=== PATIENT | male | born 1990 | race Caucasian/White ===

== ENCOUNTER 2021-05-22 10:20 | Outpatient (CLI) | payer OTHER | END 2021-05-22 10:21 | disposition critical access hospital (66) | LOC: EMS 10:20 | DX: S39.92XA Unspecified injury of lower back, initial encounter (principal); S39.93XA Unspecified injury of pelvis, initial encounter; W17.89XA Other fall from one level to another, initial encounter; Y93.H3 Activity, building and construction; Y92.008 Other place in unspecified non-institutional (private) residence as the place of occurrence of the external cause; Y99.0 Civilian activity done for income or pay | CPT/HCPCS: A0425; A0427 ==

== ENCOUNTER 2021-05-22 10:31 | Emergency (ER) | payer OTHER ==
--- NOTE | 2021-05-22 10:55 | ED Physician Documentation ---
History of Present Illness - Stated complaint Stated Complaint: 12 FT FALL - Chief complaint Chief Complaint: Trauma Ch/Bk - History obtained from History obtained from: Patient, EMS - History of Present Illness Timing: Today Pain level max: 8 Pain level now: 5 - Additonal information Additional information: Patient is a 30-year-old male who states he was at work today when he stepped backwards on a piece of plywood that flipped up and he fell about 12 feet down onto the ground below injuring his right and left hip. Also complains of low back pain. No ankle pain, no foot pain, no knee pain, no chest pain, no neck pain, no head pain. No head injury. No loss of consciousness. Worse with movement, better with rest. Given fentanyl with EMS. Does not take any medications at home other than Zyrtec. No numbness or tingling. No loss of bowel or bladder control. Also complains of mild diffuse abdominal pain. Review of Systems Ten Systems: 10 systems reviewed and negative Constitutional: denies: Fever, Chills Ears: denies: Ear pain Nose: denies: Rhinorrhea / runny nose, Congestion Respiratory: denies: Cough GI: denies: Nausea, Vomiting, Diarrhea Skin: denies: Rash Musculoskeletal: denies: Neck pain, Back pain Neurologic: denies: Headache PD PAST MEDICAL HISTORY - Past Medical History Past Medical History: No - Past Surgical History Past Surgical History: No - Present Medications Home Medications: Ambulatory Orders Medication Instructions Recorded Confirmed Cetirizine [ZyrTEC] 1 tab PO DAILY PRN 05/22/21 05/22/21 - Allergies Allergies/Adverse Reactions: Allergies Allergy/AdvReac Type Severity Reaction Status Date / Time No Known Drug Allergies Allergy Verified 05/22/21 10:42 - Living Situation Living Situation: reports: With family Living Arrangement: reports: At home - Social History Does the pt have substance abuse?: No - Family History Family history: reports: Non contributory PD ED PE NORMAL - Vitals Vital signs reviewed: Yes - General General: Alert and oriented X 3, No acute distress, Well developed/nourished - HEENT HEENT: Atraumatic, PERRL, EOMI, Ears normal, Moist mucous membranes - Neck Neck: Supple, no meningeal sign, No bony TTP, Other (Full range of motion without pain) - Cardiac Cardiac: RRR, No murmur, Strong equal pulses - Respiratory Respiratory: No respiratory distress, Clear bilaterally - Abdomen Abdomen: Normal bowel sounds, Soft, Non distended, Other (Mild tenderness to palpation. No peritoneal signs) - Back Back: Other (No tenderness over the thoracic spine, mild tenderness to palpation, midline lower lumbar. No step-off or deformity.) - Derm Derm: Warm and dry - Extremities Extremities: No deformity, No tenderness to palpate, Other (Pelvis is stable. There is pain with range of motion of both hips. Otherwise normal examination of the bilateral upper and lower extremities. Neurovascular intact) - Neuro Neuro: Alert and oriented X 3, enrollment services dean 2-12 intact, No motor deficit, No sensory deficit, Normal speech Eye Opening: Spontaneous Motor: Obeys Commands Verbal: Oriented GCS Score: 15 - Psych Psych: Normal mood, Normal affect Results - Vitals Vitals: Vital Signs - 24 hr 05/22/21 05/22/21 05/22/21 10:31 11:16 11:34 Temperature 36.6 C Heart Rate 59 L 65 Respiratory 16 16 12 Rate Blood Pressure 148/82 H 134/82 H 125/79 O2 Saturation 98 99 98 Oxygen O2 Source Room air - Labs Labs: Laboratory Tests 05/22/21 05/22/21 05/22/21 10:49 10:49 10:49 WBC 6.5 RBC 4.77 Hgb 15.1 Hct 43.9 MCV 92.0 MCH 31.7 H MCHC 34.4 RDW 11.6 L Plt Count 192 MPV 12.4 H Neut # (Auto) 4.4 Lymph # (Auto) 1.5 [place] # (Auto) 0.5 Eos # (Auto) 0.1 Baso # (Auto) 0.0 Absolute Nucleated RBC 0.00 Nucleated RBC % 0.0 PT 13.5 H INR 1.2 Sodium 139 Potassium 4.0 Chloride 102 Carbon Dioxide 27 Anion Gap 10.0 BUN 20 Creatinine 1.0 Estimated GFR (MDRD) 88 L Glucose 146 H Calcium 9.4 Total Bilirubin 0.7 AST 23 ALT 19 Alkaline Phosphatase 63 Total Protein 7.5 Albumin 4.5 Globulin 3.0 Albumin/Globulin Ratio 1.5 Lipase 22 Nasal Adenovirus (PCR) Nasal B. parapertussis DNA (PCR) Nasal Coronavir 229E PCR Nasal Coronavir HKU1 PCR Nasal Coronavir NL63 PCR Nasal Coronavir OC43 PCR Nasal Enterovir/Rhinovir PCR Nasal Influenza B PCR Nasal Influenza A PCR Nasal Parainfluen 1 PCR Nasal Parainfluen 2 PCR Nasal Parainfluen 3 PCR Nasal Parainfluen 4 PCR Nasal RSV (PCR) Nasal B.pertussis DNA PCR Nasal C.pneumoniae (PCR) Chandra Human Metapneumo PCR Nasal M.pneumoniae (PCR) Nasal SARS-CoV-2 (PCR) 05/22/21 11:36 WBC RBC Hgb Hct MCV MCH MCHC RDW Plt Count MPV Neut # (Auto) Lymph # (Auto) [place] # (Auto) Eos # (Auto) Baso # (Auto) Absolute Nucleated RBC Nucleated RBC % PT INR Sodium Potassium Chloride Carbon Dioxide Anion Gap BUN Creatinine Estimated GFR (MDRD) Glucose Calcium Total Bilirubin AST ALT Alkaline Phosphatase Total Protein Albumin Globulin Albumin/Globulin Ratio Lipase Nasal Adenovirus (PCR) NOT DETECTED Nasal B. parapertussis DNA (PCR) NOT DETECTED Nasal Coronavir 229E PCR NOT DETECTED Nasal Coronavir HKU1 PCR NOT DETECTED Nasal Coronavir NL63 PCR NOT DETECTED Nasal Coronavir OC43 PCR NOT DETECTED Nasal Enterovir/Rhinovir PCR NOT DETECTED Nasal Influenza B PCR NOT DETECTED Nasal Influenza A PCR NOT DETECTED Nasal Parainfluen 1 PCR NOT DETECTED Nasal Parainfluen 2 PCR NOT DETECTED Nasal Parainfluen 3 PCR NOT DETECTED Nasal Parainfluen 4 PCR NOT DETECTED Nasal RSV (PCR) NOT DETECTED Nasal B.pertussis DNA PCR NOT DETECTED Nasal C.pneumoniae (PCR) NOT DETECTED Chandra Human Metapneumo PCR NOT DETECTED Nasal M.pneumoniae (PCR) NOT DETECTED Nasal SARS-CoV-2 (PCR) NOT DETECTED - Rads (name of study) CT head Radiology: Final report received, EMP read contemporaneously, See rad report (no acute abnormality) Ct c-spine Radiology: Final report received, EMP read contemporaneously, See rad report (no acute abnormality) Ct T spine Radiology: Final report received, EMP read contemporaneously, See rad report (no acute abnormality) CT L spine Radiology: Final report received, EMP read contemporaneously, See rad report CT abd/pelvis Radiology: Final report received, EMP read contemporaneously, See rad report PD MEDICAL DECISION MAKING - ED course Complexity details: reviewed results, re-evaluated patient, considered differ ential, d/w patient, d/w media consultant ED course: Patient with unstable L2 burst fracture. neurologically intact. Will need transfer to neurosurgery. Dr. Guzman (neurosurgery) and Dr. Ramos (emergnecy department) graciously accept in transfer. No other acute injuries. Neurologically intact at the time of transfer. Patient transferred via [facility] IMPRESSION: Acute burst-type fracture of the L2 vertebra with retropulsion of osseous fragments resulting in moderate narrowing of the spinal canal. The fracture also involves the posterior elements of the L2 vertebra. Lumbar spine MRI could be performed to evaluate for injury to the spinal cord and soft tissue structures. IMPRESSION: 1. Acute burst-type fracture of the L2 vertebra with retropulsion of bony fragments resulting in narrowing of the spinal canal, and involvement of the posterior elements. Please see the report from the separate CT of the lumbar spine performed at same time for further details. 2. No additional fracture identified. No acute solid organ injury. Departure - Departure Disposition: 02 Transfer Acute Care Hosp Clinical Impression: L2 vertebral fracture Qualifiers: Encounter type: initial encounter Fracture type: closed Fracture morphology: burst- unstable Qualified Code(s): S32.022A - Unstable burst fracture of second lumbar vertebra, initial encounter for closed fracture Condition: Stable Discharge Date/Time: 05/22/21 12:47
[2021-05-22] MEDS ORDERED: IOPAMIDOL-300 100 ML VIAL ONE (10:56)
[2021-05-22] MEDS ORDERED: HYDROmorphone 1 MG/ML CARPUJECT IVP STA ×3 (11:22→12:41)
[2021-05-22] MEDS ORDERED: ONDANSETRON 4 MG/2 ML VIAL IVP STA (11:22)
[2021-05-22 11:31] LABS: BASOPHILS % (AUTO) 0.5 %; EOSINOPHILS # (AUTO) 0.1 10^3/uL (0.0-0.7); EOSINOPHILS % (AUTO) 1.7 %; HCT - HEMATOCRIT 43.9 % (42.0-52.0); HGB - HEMOGLOBIN 15.1 g/dL (14.0-18.0); LYMPHOCYTES # (AUTO) 1.5 10^3/uL (1.5-3.5); LYMPHOCYTES % (AUTO) 22.8 %; MEAN CORPUSCULAR HEMOGLOBIN 31.7 pg (27.0-31.0); MEAN CORPUSCULAR HGB CONC 34.4 g/dL (32.0-36.0); MEAN PLATELET VOLUME 12.4 fL (7.4-11.4); MONOCYTES # (AUTO) 0.5 10^3/uL (0.0-1.0); MONOCYTES % (AUTO) 7.1 %; NEUTROPHILS # (AUTO) 4.4 10^3/uL (1.5-6.6); NEUTROPHILS % (AUTO) 67.3 %; PLT - PLATELET COUNT 192 10^3/uL (130-450); RED BLOOD COUNT 4.77 10^6/uL (4.70-6.10); RED CELL DISTRIBUTION WIDTH 11.6 % (12.0-15.0); WHITE BLOOD COUNT 6.5 x10^3/uL (4.8-10.8)
[2021-05-22 11:37] LABS: INR 1.2 (0.8-1.2); PT - PROTHROMBIN TIME 13.5 secs (9.9-12.6)
[2021-05-22 11:41] LABS: ALBUMIN 4.5 g/dL (3.2-5.5); ALBUMIN/GLOBULIN RATIO 1.5 (1.0-2.2); BILIRUBIN,TOTAL 0.7 mg/dL (0.2-1.0); CALCIUM 9.4 mg/dL (8.5-10.3); TOTAL PROTEIN 7.5 g/dL (6.7-8.2)
[2021-05-22 11:51] VITALS: BP 125/79
--- NOTE | 2021-05-22 11:57 | CT Report ---
PROCEDURE: LUMBAR SPINE WO INDICATIONS: low back pain s/p fall TECHNIQUE: Noncontrast 3 mm thick sections acquired from the T12 level to the sacrum. Sagittal and coronal refo rmats were constructed. For radiation dose reduction, the following was used: automated exposure co ntrol, adjustment of mA and/or kV according to patient size. COMPARISON: None. FINDINGS: Image quality: Excellent. Bones: There is an acute comminuted fracture of the L2 vertebral body with approximately 7 mm retrop ulsion of osseous fragments into the spinal canal resulting in moderate narrowing of the osseous spin al canal. There is approximately 40% loss of vertebral body height centrally. There is also a longitu dinal fracture involving the posterior neural arch and left pars interarticularis at the L2 vertebra. Retropulsion of the bony fragments results in moderate narrowing of the spinal canal at the L1-2 lev el (estimated to be 45% narrowed) with partial effacement of the lateral recesses. No definite neural foraminal narrowing is seen on CT. No additional fracture is seen. Lumbar alignment is otherwise maintained. No significant degenerative disc disease or facet hypertrophy. No suspicious lytic or blastic bony lesions. Soft tissues: Mild soft tissue edema adjacent to the L2 fracture. Visualized aorta is normal in calib er. Small hiatal hernia. IMPRESSION: Acute burst-type fracture of the L2 vertebra with retropulsion of osseous fragments resulting in mode rate narrowing of the spinal canal. The fracture also involves the posterior elements of the L2 verte bra. Lumbar spine MRI could be performed to evaluate for injury to the spinal cord and soft tissue st ructures. Findings were discussed with the Dr. Lopez of the Emergency Department on 05/22/2021 at 11:52 AM. Reviewed by: All Rincon MD on 05/22/2021 11:56 AM PDT Approved by: All Rincon MD on 05/22/2021 11:56 AM PDT Station ID: [id number]
--- NOTE | 2021-05-22 11:59 | CT Report ---
PROCEDURE: Abdomen/Pelvis W INDICATIONS: fall 12 feet, pelvis and abd pain CONTRAST: IV CONTRAST: Isovue 300 ml: 100 PO CONTRAST: *NO PO CONTRAST TECHNIQUE: After the administration of intravenous contrast, 5 mm thick sections acquired from the diaphragms to the symphysis. 5 mm thick coronal and sagittal reformats were acquired. For radiation dose reducti on, the following was used: automated exposure control, adjustment of mA and/or kV according to juan c ent size. COMPARISON: None. FINDINGS: Image quality: Excellent. ABDOMEN: Lung bases: Lung bases are clear. Heart size is normal. Solid organs: Liver and spleen are normal in size and enhancement. Gallbladder appears normal. Justice iary system is non dilated. Pancreas enhances normally. No adrenal nodules. Kidneys demonstrate no rmal size and enhancement, without hydronephrosis. Peritoneum and bowel: Small hiatal hernia. Bowel loops demonstrate normal wall thickness and caliber . No free fluid or air. Nodes and vessels: No retroperitoneal or mesenteric adenopathy by size criteria. Aorta and inferior vena cava are normal in size. Miscellaneous: No ventral hernias. PELVIS: Genitourinary: Bladder wall thickness is normal. Miscellaneous: Small bilateral fat-containing inguinal hernias. Bones: There is a burst type fracture of the L2 vertebral body with retropulsion of bony fragments th at narrows the spinal canal. Mild surrounding soft tissue edema is seen. Please see the report from t he concurrent CT of the lumbar spine for more detailed evaluation. IMPRESSION: 1. Acute burst-type fracture of the L2 vertebra with retropulsion of bony fragments resulting in nabeel rowing of the spinal canal, and involvement of the posterior elements. Please see the report from the separate CT of the lumbar spine performed at same time for further details. 2. No additional fracture identified. No acute solid organ injury. Findings were discussed with the Emergency Department physician, Dr. Lopez, by telephone on at 11:52 AM. Reviewed by: All Rincon MD on 05/22/2021 11:58 AM PDT Approved by: All Rincon MD on 05/22/2021 11:58 AM PDT Station ID: [id number]
--- NOTE | 2021-05-22 12:08 | CT Report ---
PROCEDURE: HEAD WO INDICATIONS: Trauma, fall TECHNIQUE: Noncontrast 4.5 mm thick angled axial sections acquired from the foramen magnum to the vertex. For r adiation dose reduction, the following was used: automated exposure control, adjustment of mA and/or kV according to patient size. COMPARISON: None. FINDINGS: IV contrast was administered recently. This increases the density of the blood pool within the intrac ranial vasculature, greatly limiting the sensitivity and specificity of this examination for subarach noid hemorrhage. Within this limitation, there is no evidence of acute intracranial hemorrhage, abnor mal extra axial fluid collection, mass effect or midline shift. The ventricular system and basilar ci sterns are patent. Rodrigues-white matter differentiation is grossly maintained, with no CT evidence of an acute large territory infarct. Skull base and calvaria are intact. IMPRESSION: Limited exam due to the recent administration of intravenous contrast. No acute intracranial abnormality identified within this limitation. Reviewed by: Darrin Velazquez MD on 05/22/2021 12:07 PM PDT Approved by: Darrin Velazquez MD on 05/22/2021 12:07 PM PDT Station ID: [id number]
--- NOTE | 2021-05-22 12:10 | CT Report ---
PROCEDURE: CERVICAL SPINE WO INDICATIONS: fall TECHNIQUE: Noncontrast 3 mm thick sections acquired from the skull base to the T4 level. Sagittal and coronal r eformats were then constructed. For radiation dose reduction, the following was used: automated exp osure control, adjustment of mA and/or kV according to patient size. COMPARISON: None. FINDINGS: Image quality: Excellent. Bones: No fractures or dislocations. Visualized superior ribs are intact. Soft tissues: Prevertebral soft tissues are normal in thickness. No paravertebral hematomas. No ap ical pneumothoraces. IMPRESSION: No CT evidence of acute traumatic cervical spine injury. Reviewed by: Darrin Velazquez MD on 05/22/2021 12:09 PM PDT Approved by: Darrin Velazquez MD on 05/22/2021 12:09 PM PDT Station ID: [id number]
--- NOTE | 2021-05-22 12:12 | CT Report ---
PROCEDURE: THORACIC SPINE WO INDICATIONS: Trauma, fall TECHNIQUE: Noncontrast 3 mm thick sections acquired through the region of interest in the thoracic spine. Sagit sampson and coronal reformats were then constructed. For radiation dose reduction, the following was used : automated exposure control, adjustment of mA and/or kV according to patient size. COMPARISON: FINDINGS: Image quality: Excellent. Bones: Partially visualized L2 burst compression fracture deformity, described on separately dictated CT lumbar spine report. Thoracic vertebral body height and alignment are normal with no evidence of fracture in the thoracic spine. Visualized portions of the posterior ribs are intact. Soft tissues: No paravertebral masses or hematomas. Visualized posteromedial lungs appear clear. IMPRESSION: No CT evidence of acute traumatic thoracic spine injury. Partially visualized L2 burst compression fracture, described separately in CT lumbar spine report. Reviewed by: Darrin Velazquez MD on 05/22/2021 12:10 PM PDT Approved by: Darrin Velazquez MD on 05/22/2021 12:10 PM PDT Station ID: [id number]
[2021-05-22] MEDS ORDERED: IOPAMIDOL-300 100 ML VIAL IVP ONE (12:13)
[2021-05-22 12:49] LABS: B. PARAPERTUSSIS- RESP PCR PAN NOT DETECTED; B. PERTUSSIS- RESP PCR PANEL NOT DETECTED; C. PNEUMONIAE- RESP PCR PANEL NOT DETECTED; CORONAVIRUS 229E-RESP PCR NOT DETECTED; CORONAVIRUS HKU1-RESP PCR NOT DETECTED; CORONAVIRUS NL63-RESP PCR NOT DETECTED; CORONAVIRUS OC43-RESP PCR NOT DETECTED; HUMAN METAPNEUMOVIRUS NOT DETECTED; INFLUENZA A- RESP PCR PANEL NOT DETECTED; INFLUENZA B - RESP PCR PANEL NOT DETECTED; M. PNEUMONIAE- RESP PCR PANEL NOT DETECTED; PARAINFLUENZA VIRUS 1 NOT DETECTED; PARAINFLUENZA VIRUS 2 NOT DETECTED; PARAINFLUENZA VIRUS 3 NOT DETECTED; PARAINFLUENZA VIRUS 4 NOT DETECTED; RHINOVIRUS/ENTEROVIRUS NOT DETECTED; RSV- RESP PCR PANEL NOT DETECTED; SARS-CoV-2 -RESP PCR PANEL NOT DETECTED
== END 2021-05-22 12:47 | disposition short-term general hospital (02) ==
LOC: ED 10:31
DX: S32.022A Unstable burst fracture of second lumbar vertebra, initial encounter for closed fracture (principal); W17.89XA Other fall from one level to another, initial encounter; Y93.89 Activity, other specified; Y92.89 Other specified places as the place of occurrence of the external cause; Y99.0 Civilian activity done for income or pay; Z20.822 Contact with and (suspected) exposure to COVID-19
CPT/HCPCS: 0202U; 1040M; 36415; 70450; 72125; 72128; 72131; 74177; 80053; 83690; 85025; 85610; 96374; 96375; 96376; 99284; 99285; J1170; Q9967